=== PATIENT | female | born 1945 | race Caucasian/White ===

== ENCOUNTER 2019-03-29 23:45 | Emergency (ER) | payer MEDICARE ==
[~2019-03-29] VITALS: Ht 165.1 cm; Wt 90.7 kg
== END 2019-03-30 02:00 | disposition home or self-care (01) ==
LOC: ED 23:45
DX: S01.511A Laceration without foreign body of lip, initial encounter (principal); W19.XXXA Unspecified fall, initial encounter; Y93.89 Activity, other specified; Y92.89 Other specified places as the place of occurrence of the external cause; Y99.8 Other external cause status

== ENCOUNTER 2020-10-28 20:23 | Inpatient (IN) | payer MEDICARE ==
[~2020-10-28] VITALS: Ht 165.1 cm; Wt 71.9 kg
[2020-10-28 20:50] VITALS: BP 119/95
[2020-10-28 21:06] LABS: BASO % 0.2 % (0.0-1.0); HEMATOCRIT 47.2 % (37.0-47.0); LYMPH # 1.1 10*3/uL (1.3-4.4); LYMPH % 6.8 % (27.0-41.0); MEAN CELL VOLUME 96.7 fl (81.0-99.0); MEAN CORPUSCULAR HGB 33.8 pg (27.0-31.0); MEAN PLATELET VOLUME 11.1 fl (9.6-12.3); MONO # 0.8 10*3/uL (0.1-1.0); MONO % 4.8 % (3.0-9.0); NEUT # 14.6 10*3/uL (2.3-7.9); NEUT % 87.6 % (47.0-73.0); NUCLEATED RED BLOOD CELL 0.1 % (0.0-0.0); PLATELET COUNT AUTOMATED 364 10*3/uL (130-400); RED BLOOD COUNT 4.88 10*6/uL (4.10-5.10); RED CELL DISTRI WIDTH 15.1 % (0-14.5); WHITE BLOOD COUNT 16.6 10*3/uL (4.8-10.8)
[2020-10-28 21:22] LABS: ALBUMIN 3.1 gm/dl (3.1-4.5); ALKALINE PHOSPHATASE 105 U/L (45-117); BUN 27 mg/dl (7-24); CHLORIDE 109 mmol/L (98-107); CPK 629 U/L (26-192); CREATININE 0.91 mg/dL (0.55-1.02); POTASSIUM 3.9 mmol/L (3.5-5.1); SGOT/AST 39 IU/L (3-35); SGPT/ALT 24 U/L (12-78); SODIUM 145 mmol/L (136-145); TOTAL PROTEIN 6.8 gm/dL (6.4-8.2)
[2020-10-28 23:18] LABS: BILIRUBIN 3+ (Negative); BLOOD 2+ (Negative); CLARITY Cloudy (Clear); COLOR Dark Yellow (Yellow); GLUCOSE Negative (Negative); KETONE 4+ (Negative); LEUKO ESTERASE 1+ (Negative); NITRITE Negative (Negative); PH 5.5 (4.5-8.0); SPECIFIC GRAVITY >= 1.030 (1.001-1.030)
[2020-10-28 23:29] LABS: EPITHELIAL CELLS 21-30; RBC 16-20 rbc/hpf (0-2); WBC 21-30 wbc/hpf (0-5)
[2020-10-28 23:30] LABS: BACTERIA 1+
[2020-10-28 23:49] VITALS: BP 91/46
[2020-10-29] VITALS (11 sets, daily range): BP systolic 94–110; BP diastolic 48–73
[2020-10-29 03:59] LABS: BASO % 0.1 % (0.0-1.0); HEMATOCRIT 42.2 % (37.0-47.0); LYMPH # 1.2 10*3/uL (1.3-4.4); LYMPH % 8.4 % (27.0-41.0); MEAN CELL VOLUME 97.5 fl (81.0-99.0); MEAN CORPUSCULAR HGB 33.3 pg (27.0-31.0); MEAN CORPUSCULAR HGB CONC 34.1 g/dl (33.0-37.0); MEAN PLATELET VOLUME 10.9 fl (9.6-12.3); MONO # 0.7 10*3/uL (0.1-1.0); MONO % 4.8 % (3.0-9.0); NEUT % 85.9 % (47.0-73.0); NUCLEATED RED BLOOD CELL 0.1 % (0.0-0.0); PLATELET COUNT AUTOMATED 302 10*3/uL (130-400); RED BLOOD COUNT 4.33 10*6/uL (4.10-5.10)
[2020-10-29 04:17] LABS: ALBUMIN 2.5 gm/dl (3.1-4.5); ALKALINE PHOSPHATASE 92 U/L (45-117); BUN 23 mg/dl (7-24); CHLORIDE 114 mmol/L (98-107); CHOLESTEROL 137 mg/dL (<200); CPK 641 U/L (26-192); FREE T4 0.88 ng/dl (0.76-1.46); LDL CHOLESTEROL 47 mg/dL (9-159); POTASSIUM 3.7 mmol/L (3.5-5.1); SGOT/AST 86 IU/L (3-35); SGPT/ALT 33 U/L (12-78); SODIUM 145 mmol/L (136-145); TOTAL PROTEIN 5.6 gm/dL (6.4-8.2); TRIGLYCERIDES 164 mg/dl (<150)
[2020-10-29] MEDS ORDERED: DILANTIN100 MG PO (07:56)
[2020-10-30 06:16] LABS: CHLORIDE 115 mmol/L (98-107); POTASSIUM 3.3 mmol/L (3.5-5.1); SODIUM 144 mmol/L (136-145)
[2020-10-30 06:17] LABS: BUN 13 mg/dl (7-24)
[2020-10-30 06:47] LABS: BASO % 0.2 % (0.0-1.0); HEMATOCRIT 32.5 % (37.0-47.0); LYMPH # 1.3 10*3/uL (1.3-4.4); LYMPH % 24.7 % (27.0-41.0); MEAN CELL VOLUME 96.7 fl (81.0-99.0); MEAN CORPUSCULAR HGB CONC 34.2 g/dl (33.0-37.0); MEAN PLATELET VOLUME 11.2 fl (9.6-12.3); MONO # 0.3 10*3/uL (0.1-1.0); MONO % 4.8 % (3.0-9.0); NEUT # 3.6 10*3/uL (2.3-7.9); NEUT % 69.5 % (47.0-73.0); NUCLEATED RED BLOOD CELL 0.4 % (0.0-0.0); RED BLOOD COUNT 3.36 10*6/uL (4.10-5.10); RED CELL DISTRI WIDTH 14.8 % (0-14.5); WHITE BLOOD COUNT 5.2 10*3/uL (4.8-10.8)
[2020-10-30 06:57] LABS: PLATELET COUNT AUTOMATED 199 10*3/uL (130-400)
[2020-10-30 08:00] VITALS: BP 97/63
[2020-10-30 12:00] VITALS: BP 101/62
[2020-10-30 16:00] VITALS: BP 100/58
[2020-10-30 20:00] VITALS: BP 111/47
[2020-10-31] VITALS: BP 114/51
[2020-10-31 06:23] LABS: BASO % 0.2 % (0.0-1.0); HEMATOCRIT 31.2 % (37.0-47.0); LYMPH # 1.7 10*3/uL (1.3-4.4); LYMPH % 34.4 % (27.0-41.0); MEAN CELL VOLUME 97.8 fl (81.0-99.0); MEAN CORPUSCULAR HGB 34.2 pg (27.0-31.0); MEAN CORPUSCULAR HGB CONC 34.9 g/dl (33.0-37.0); MEAN PLATELET VOLUME 11.2 fl (9.6-12.3); MONO # 0.2 10*3/uL (0.1-1.0); MONO % 4.7 % (3.0-9.0); NEUT % 60.1 % (47.0-73.0); PLATELET COUNT AUTOMATED 194 10*3/uL (130-400); RED BLOOD COUNT 3.19 10*6/uL (4.10-5.10); WHITE BLOOD COUNT 4.9 10*3/uL (4.8-10.8)
[2020-10-31 06:25] LABS: BUN 11 mg/dl (7-24); CHLORIDE 114 mmol/L (98-107); POTASSIUM 3.2 mmol/L (3.5-5.1); SODIUM 143 mmol/L (136-145)
[2020-10-31 06:34] LABS: PHENYTOIN (DILANTIN) 21.6 ug/ml (10-20)
[2020-10-31 08:00] VITALS: BP 106/48
[2020-10-31 12:00] VITALS: BP 117/51
[2020-10-31 12:28] LABS: ALBUMIN 2.2 gm/dl (3.1-4.5); ALKALINE PHOSPHATASE 74 U/L (45-117); BUN 10 mg/dl (7-24); CHLORIDE 114 mmol/L (98-107); CREATININE 0.41 mg/dL (0.55-1.02); POTASSIUM 3.5 mmol/L (3.5-5.1); SGOT/AST 24 IU/L (3-35); SGPT/ALT 23 U/L (12-78); SODIUM 144 mmol/L (136-145); TOTAL PROTEIN 4.8 gm/dL (6.4-8.2)
[2020-10-31 12:45] LABS: VENOUS PH 7.42 (7.37-7.45)
[2020-10-31 16:00] VITALS: BP 114/58
[2020-10-31 20:00] VITALS: BP 120/55
[2020-11-01] VITALS (9 sets, daily range): BP systolic 98–135; BP diastolic 49–75
[2020-11-01 06:18] LABS: BASO % 0.4 % (0.0-1.0); HEMATOCRIT 33.3 % (37.0-47.0); LYMPH # 1.7 10*3/uL (1.3-4.4); LYMPH % 33.3 % (27.0-41.0); MEAN CELL VOLUME 97.9 fl (81.0-99.0); MEAN CORPUSCULAR HGB 33.8 pg (27.0-31.0); MEAN CORPUSCULAR HGB CONC 34.5 g/dl (33.0-37.0); MEAN PLATELET VOLUME 10.9 fl (9.6-12.3); MONO # 0.3 10*3/uL (0.1-1.0); MONO % 5.6 % (3.0-9.0); NEUT % 59.9 % (47.0-73.0); PLATELET COUNT AUTOMATED 203 10*3/uL (130-400); RED CELL DISTRI WIDTH 15.3 % (0-14.5)
[2020-11-01 06:47] LABS: CHLORIDE 111 mmol/L (98-107); POTASSIUM 3.3 mmol/L (3.5-5.1); SODIUM 142 mmol/L (136-145)
[2020-11-01 07:03] LABS: ALBUMIN 2.1 gm/dl (3.1-4.5); ALKALINE PHOSPHATASE 75 U/L (45-117); BUN 8 mg/dl (7-24); CREATININE 0.35 mg/dL (0.55-1.02); PHENYTOIN (DILANTIN) 22.1 ug/ml (10-20); SGOT/AST 18 IU/L (3-35); SGPT/ALT 22 U/L (12-78); TOTAL PROTEIN 4.8 gm/dL (6.4-8.2)
[2020-11-02] VITALS (7 sets, daily range): BP systolic 123–135; BP diastolic 45–84
[2020-11-02 06:39] LABS: BASO % 0.2 % (0.0-1.0); HEMATOCRIT 31.3 % (37.0-47.0); LYMPH # 1.4 10*3/uL (1.3-4.4); LYMPH % 23.7 % (27.0-41.0); MEAN CORPUSCULAR HGB 33.8 pg (27.0-31.0); MEAN CORPUSCULAR HGB CONC 35.8 g/dl (33.0-37.0); MEAN PLATELET VOLUME 10.6 fl (9.6-12.3); MONO # 0.6 10*3/uL (0.1-1.0); MONO % 9.1 % (3.0-9.0); NEUT % 66.2 % (47.0-73.0); PLATELET COUNT AUTOMATED 198 10*3/uL (130-400); RED BLOOD COUNT 3.31 10*6/uL (4.10-5.10)
[2020-11-02 06:47] LABS: MEAN CELL VOLUME 94.6 fl (81.0-99.0)
[2020-11-02 06:54] LABS: ALBUMIN 2.1 gm/dl (3.1-4.5); ALKALINE PHOSPHATASE 76 U/L (45-117); BUN 6 mg/dl (7-24); CHLORIDE 110 mmol/L (98-107); CREATININE 0.32 mg/dL (0.55-1.02); POTASSIUM 3.3 mmol/L (3.5-5.1); SGOT/AST 22 IU/L (3-35); SGPT/ALT 21 U/L (12-78); SODIUM 142 mmol/L (136-145); TOTAL PROTEIN 4.5 gm/dL (6.4-8.2)
[2020-11-02 07:06] LABS: PHENYTOIN (DILANTIN) 18.3 ug/ml (10-20)
[2020-11-02 20:37] LABS: BASO % 0.3 % (0.0-1.0); HEMATOCRIT 31.5 % (37.0-47.0); LYMPH # 1.4 10*3/uL (1.3-4.4); LYMPH % 22.1 % (27.0-41.0); MEAN CELL VOLUME 94.3 fl (81.0-99.0); MEAN CORPUSCULAR HGB 33.5 pg (27.0-31.0); MEAN CORPUSCULAR HGB CONC 35.6 g/dl (33.0-37.0); MEAN PLATELET VOLUME 10.2 fl (9.6-12.3); MONO # 0.6 10*3/uL (0.1-1.0); MONO % 9.7 % (3.0-9.0); NEUT # 4.3 10*3/uL (2.3-7.9); NEUT % 66.4 % (47.0-73.0); PLATELET COUNT AUTOMATED 209 10*3/uL (130-400); RED BLOOD COUNT 3.34 10*6/uL (4.10-5.10); RED CELL DISTRI WIDTH 14.8 % (0-14.5); WHITE BLOOD COUNT 6.5 10*3/uL (4.8-10.8)
[2020-11-04 14:07] LABS: ORGANISM ID Final report (.)
== END 2020-11-02 23:25 | disposition short-term general hospital (02) | DRG 871 ==
LOC: ED 20:23 → EDHOLD 10-29 01:23 → 5E 10-29 01:23 → ICCU 11-02 19:10
PROVIDERS: Hospitalist; Internal Medicine; ADMIT Internal Medicine; ATTEND Internal Medicine
PROC: B24BZZ4 Ultrasonography of Heart with Aorta, Transesophageal (ICD-10-PCS; principal; 2020-11-01)
DX: A41.89 Other specified sepsis (principal); E43 Unspecified severe protein-calorie malnutrition; E87.2 Acidosis; N39.0 Urinary tract infection, site not specified; N17.9 Acute kidney failure, unspecified; E83.41 Hypermagnesemia; I95.9 Hypotension, unspecified; I48.91 Unspecified atrial fibrillation; Z20.822 Contact with and (suspected) exposure to COVID-19; W19.XXXA Unspecified fall, initial encounter; Y93.89 Activity, other specified; Y92.89 Other specified places as the place of occurrence of the external cause; Y99.8 Other external cause status; E80.6 Other disorders of bilirubin metabolism; R73.9 Hyperglycemia, unspecified; E86.0 Dehydration; Z87.898 Personal history of other specified conditions; R65.20 Severe sepsis without septic shock; E83.39 Other disorders of phosphorus metabolism; S10.93XA Contusion of unspecified part of neck, initial encounter; E83.51 Hypocalcemia; E87.6 Hypokalemia; Z79.899 Other long term (current) drug therapy; Z82.49 Family history of ischemic heart disease and other diseases of the circulatory system; Z68.26 Body mass index [BMI] 26.0-26.9, adult

== ENCOUNTER 2020-12-04 11:00 | Emergency (ER) | payer MEDICARE ==
[~2020-12-04] VITALS: Ht 170.1 cm; Wt 83.5 kg
[~2020-12-04 11:00] MED LIST: DILANTIN100 MG PO
== END 2020-12-04 13:05 | disposition home or self-care (01) ==
LOC: ED 11:00
DX: S09.90XA Unspecified injury of head, initial encounter (principal); I62.9 Nontraumatic intracranial hemorrhage, unspecified; I48.91 Unspecified atrial fibrillation; Z79.899 Other long term (current) drug therapy; Z87.891 Personal history of nicotine dependence; X58.XXXA Exposure to other specified factors, initial encounter; Y93.89 Activity, other specified; Y92.89 Other specified places as the place of occurrence of the external cause; Y99.8 Other external cause status

== ENCOUNTER 2021-01-13 13:50 | Emergency (ER) | payer MEDICARE ==
[~2021-01-13] VITALS: Ht 160 cm; Wt 64.0 kg
[2021-01-13 15:20] LABS: BASO % 0.3 % (0.0-1.0); HEMATOCRIT 37.5 % (37.0-47.0); LYMPH # 1.3 10*3/uL (1.3-4.4); LYMPH % 12.3 % (27.0-41.0); MEAN CELL VOLUME 104.2 fl (81.0-99.0); MEAN CORPUSCULAR HGB 34.4 pg (27.0-31.0); MEAN CORPUSCULAR HGB CONC 33.1 g/dl (33.0-37.0); MEAN PLATELET VOLUME 9.5 fl (9.6-12.3); MONO # 0.9 10*3/uL (0.1-1.0); MONO % 7.9 % (3.0-9.0); NEUT # 8.5 10*3/uL (2.3-7.9); NEUT % 79.1 % (47.0-73.0); PLATELET COUNT AUTOMATED 395 10*3/uL (130-400); RED CELL DISTRI WIDTH 15.3 % (0-14.5); WHITE BLOOD COUNT 10.7 10*3/uL (4.8-10.8)
[2021-01-13 15:34] LABS: ALKALINE PHOSPHATASE 109 U/L (45-117); BUN 14 mg/dl (7-24); CHLORIDE 108 mmol/L (98-107); CREATININE 0.58 mg/dL (0.55-1.02); LIPASE 137 U/L (73-393); POTASSIUM 4.4 mmol/L (3.5-5.1); SGOT/AST 16 IU/L (3-35); SGPT/ALT 15 U/L (12-78); SODIUM 140 mmol/L (136-145); TOTAL PROTEIN 5.9 gm/dL (6.4-8.2)
[2021-01-13 15:53] LABS: ACT PARTIAL THROMBO TIME 54.7 SECONDS (20.0-32.1)
[2021-01-13 15:55] LABS: INTERNATIONAL NORM RATIO 6.2 (2.0-3.5)
[2021-01-13] MEDS ORDERED: FLAGYL500 MG PO (18:57)
[2021-01-13] MEDS ORDERED: CIPRO500 MG PO (18:57)
== END 2021-01-13 19:46 ==
LOC: ED 13:50
PROVIDERS: Family Medicine
DX: K57.32 Diverticulitis of large intestine without perforation or abscess without bleeding (principal); Z79.899 Other long term (current) drug therapy; Z96.659 Presence of unspecified artificial knee joint; Z90.89 Acquired absence of other organs; Z87.891 Personal history of nicotine dependence